=== PATIENT | female | born 2000 | race American Indian/Alaskan Native ===

== ENCOUNTER 2019-04-27 06:00 | Emergency (ER) | payer MEDICAID, OTHER ==
--- NOTE | 2019-04-27 07:43 | Emergency Department Report ---
Head Injury w/o Laceration - HPI Chief Complaint: Headache Stated Complaint: HEADACHE POST FALL Time Seen by Provider: 04/27/19 07:25 Occurred When: Before Yesterday (2 days ago) Mechanism: Fall Location: Frontal Severity: moderate (05/30) Head Inj w/o Lac: Yes Headache (05/30), No Loss of Consciousness, No Nausea, No Blurred Vision, No Altered Mental Status, No Focal Deficit, No Swelling, No Bruising, No Break in Skin, No Bleeding Other History: Patient reports that she fell down a couple stairs 2 days ago and she is without headache. Denies any other symptoms. ED General PMH - Past Medical History General Medical History: no medical history Surgical History: no surgical history, other LMP (females 10-50): last week (01/12/2019) - Family History Significant Family History: hypertension - Social History Smoking Status: Former Smoker Alcohol Use: none Drug Use: N ED Neuro ROS - Review of Systems Constitutional: no symptoms reported Eyes (ROS): other (headache 2 days after falling and) Ears, Nose, Mouth, Throat: denies: ear discharge, nose pain, nose discharge, epistaxis, mouth pain, mouth swelling, loose teeth, throat pain, throat swelling Respiratory: denies: cough, short of breath, stridor, wheezing Cardiology: denies: chest pain, syncope Gastrointestinal/Abdominal: denies: nausea, vomiting Musculoskeletal: denies: back pain, joint pain, joint swelling, muscle pain, muscle stiffness Skin: denies: dryness, lesions, rash Neurological: headache. denies: anxiety, depressed, numbness, tingling, tonic- clonic seizures Head Injury W/O Lac Exam - Exam General: Vital signs noted. No distress. Alert and acting appropriately. This is a 18-year-old female here report that she fell 2 days ago and hit the front of her head and she is having headache. Patient is well-nourished well- developed u distress Adult Head Front + Back: 1 - Is located to the front of her head and both sides Head: Yes Pupils are PERRL, No Hemotympanum, No Hematoma/Ecchymosis, No Epistaxis, No Stepoff/Deformity, No Laceration, No Abrasion Chest, Abd, & Ext: Yes Clear Lung Sounds, Yes Regular Heart Rhythm, No Neck Pain, No Chest Injury/Pain, No Heart Murmur, No Abdominal Tenderness, No Back Tenderness, No Extremity Injury Neuroligical (Head Inj W/O Lac: Yes Normal Speech, Yes Normal Gait, No Lethargy, No Disorientation, No Focal Numbness, No Focal Weakness Exam: GCS 15 ED Disposition Clinical Impression: Accidental fall Qualifiers: Encounter type: initial encounter Qualified Code(s): W19.XXXA - Unspecified fall, initial encounter Acute head injury without loss of consciousness Qualifiers: Encounter type: initial encounter Qualified Code(s): S09.90XA - Unspecified injury of head, initial encounter Disposition: - TO HOME OR SELFCARE Is pt being admited?: No Does the pt Need Aspirin: No Condition: Stable Instructions: Minor Head Injury (ED), Acute Headache (ED) Additional Instructions: Please read his discharge instruction on head injury. Follow-up primary care in 2-3 days I Condition worsens, return to the emergency room Can take Tylenol 3 for pain but please do not drive or operate heavy machinery while taking this medicine as it causes drowsiness Referrals: PRIMARY CARE,MD [Primary Care Provider] - 2-3 Days Forms: Work/School Release Form(ED) ED Course Vital Signs 04/27/19 06:04 Temperature 99.1 F Pulse Rate 95 H Respiratory 18 Rate Blood Pressure 143/72 O2 Sat by Pulse 98 Oximetry - Reevaluation(s) Reevaluation #1: 04/27/19 08:33 Uneventful ED Medical Decision Making - Radiology Data Radiology results: report reviewed Findings [facility] [address] [place] [address] Cat Scan Report Signed Patient: MARNIE ZEPEDA MR#: [id number] : 2000 Acct:[id number] Age/Sex: 18 / F ADM Date: 04/27/19 Loc: ED Attending Dr: CT scan of the head without contrast which is obtained by radiologist and report reviewed by myself. See results without Ordering Physician: NANCY OLSEN Date of Service: 04/27/19 Procedure(s): CT head/brain wo con Accession Number(s): [id number] cc: NANCY OLSEN CT head/brain wo con INDICATION: fallwith anguiano. TECHNIQUE: All CT scans at this location are performed using CT dose reduction for ALARA by means of automated exposure control. COMPARISON: None available. FINDINGS: Slight mucosal thickening in the ethmoid sinuses. Visualized paranasal and ethmoid sinuses are otherwise clear. Ventricles are symmetrical and normal in size. No mass, hemorrhage or other significant abnormality. IMPRESSION: 1. Negative study. Signer Name: Fer Lowry MD Signed: 04/27/2019 8:22 AM Workstation Name: [id number] Transcribed By: TM Dictated By: Fer Lowry MD Electronically Authenticated By: Fer Lowry MD Signed Date/Time: 04/27/19821 DD/ 8 TD/TT: - Medical Decision Making This is a 18-year-old female here presenting complaint headache after falling 2 days. Denies any nausea vomiting or syncopal episode and reportedly was an accidental fall. Patient is neurologically intact with no present his skin nelly face, no visual difficulties. Patient says she took Tylenol 650 mg this morning and it did not work and she did not want Tylenol [address] scan of the head and brain without contrast shows no abnormalities per radiologist's dictation. I discussed the patient diagnosis, treatment plan and the need to follow-up with primary care in 2-3 days. Also discussed with her admission is to return to emergency room - Differential Diagnosis ICH versus ECH, sinusitis, rhinitis
[2019-04-27] MEDS ORDERED: TYLENOL PO ONE (07:44)
--- NOTE | 2019-04-27 08:26 | Cat Scan Report ---
CT head/brain wo con INDICATION: fallwith anguiano. TECHNIQUE: All CT scans at this location are performed using CT dose reduction for ALARA by means of automated e xposure control. COMPARISON: None available. FINDINGS: Slight mucosal thickening in the ethmoid sinuses. Visualized paranasal and ethmoid sinuses are otherw ise clear. Ventricles are symmetrical and normal in size. No mass, hemorrhage or other significant abnormality. IMPRESSION: 1. Negative study. Signer Name: Fer Lowry MD Signed: 04/27/2019 8:22 AM Workstation Name: [id number]
[2019-04-27] MEDS ORDERED: TYLENOL #3 PO ONE (08:39)
[2019-04-27 09:28] VITALS: BP 132/88
== END 2019-04-27 09:27 | disposition home or self-care (01) ==
LOC: ED 06:00
DX: S09.90XA Unspecified injury of head, initial encounter (principal); Z87.891 Personal history of nicotine dependence; W18.30XA Fall on same level, unspecified, initial encounter; Y93.89 Activity, other specified; Y92.89 Other specified places as the place of occurrence of the external cause; Y99.8 Other external cause status
CPT/HCPCS: 70450; 99283

== ENCOUNTER 2019-04-27 17:23 | Emergency (ER) | payer OTHER ==
[2019-04-27] MEDS ORDERED: TORADOL IV ONE (19:51)
[2019-04-27] MEDS ORDERED: FIORICET PO ONE (19:51)
[2019-04-27] MEDS ORDERED: NACL 0.9% 1000 ML 1,000 ML IV ONE (19:52)
[2019-04-27] MEDS ORDERED: ZOFRAN IV ONE (19:52)
[2019-04-27] MEDS ORDERED: KEFLEX PO ONE (22:15)
--- NOTE | 2019-04-27 23:54 | Emergency Department Report ---
ED Headache HPI - General Chief Complaint: Headache Stated Complaint: HEADACHE Source: patient, EMS Exam Limitations: no limitations - History of Present Illness Initial Comments: Patient is a 18-year-old female with no past medical history presents to the ED, no acute onset dizziness and severe frontal headache with nausea and lightheadedness for the last 2 days, and worse in the last 12 hours. Patient states that she tripped and fell down the stairs when playing with one of her friends and hit her head on the stairs 2 days ago. Patient states that initially the pain was mild but subsequently she started having headache which has worsened in the last 12 hours. Patient was initially evaluated extensively and treated for the same in the ED for the same, and was discharged home on pain medications. During the earlier ED visit, patient had a head CT scan without contrast showed no acute intracranial abnormalities or hemorrhage, but which also showed significant sinus infection in ethmoid, maxillary and frontal sinuses. Patient returned tonight complaining of worsening headache but denies nausea, vomiting, neck pain, dizziness, chest pain, shortness of breath, loss of consciousness, syncope, change in vision or loss of consciousness. Patient states that she has not been able to purchase the pain medications that were prescribed during that ED visit. Timing/Duration: constant, waxing and waning, other (2 days) Quality: severe, constant, sharp, throbbing Head Injury Location: frontal Recent Head Trauma: head trauma > 24 hrs ago Modifying Factors: improves with: medication Associated Symptoms: denies symptoms. denies: confusion, fatigue, facial pain, fever/chills, flushing, loss of consciousness, nausea/vomiting, nasal congestion, nasal drainage, numbness in legs/feet, seizures, sinus infection, stiff neck, vision changes, weakness Allergies/Adverse Reactions: Allergies No Known Allergies Allergy (Unverified 04/27/19 07:49) Home Medications: Ambulatory Orders Acetaminophen/Codeine [Tylenol /Codeine # 3 tab] 1 tab PO Q6H PRN #14 tab 04/27/19 Amoxicillin [Trimox CAP] 500 mg PO Q8H #30 capsule 04/28/19 Ketorolac [Toradol] 10 mg PO Q6H PRN #20 tablet 04/28/19 Promethazine [Phenergan] 25 mg PO Q6HR PRN #24 tab 04/28/19 ED Review of Systems ROS: Stated complaint: HEADACHE Other details as noted in HPI Constitutional: denies: chills, fever Eyes: denies: eye pain, eye discharge, vision change ENT: congestion, other (severely tender frontal sinus). denies: ear pain, throat pain Respiratory: denies: cough, shortness of breath, wheezing Cardiovascular: denies: chest pain, palpitations, dyspnea on exertion, orthopnea, edema, syncope Endocrine: no symptoms reported Gastrointestinal: nausea. denies: abdominal pain, vomiting, diarrhea, con stipation, hematemesis, melena, hematochezia Genitourinary: denies: urgency, dysuria, discharge Musculoskeletal: denies: back pain, joint swelling, arthralgia Skin: denies: rash, lesions Neurological: headache. denies: weakness, numbness, paresthesias, confusion, abnormal gait, vertigo Psychiatric: denies: anxiety, depression Hematological/Lymphatic: denies: easy bleeding, easy bruising ED Past Medical Hx - Past Medical History Hx Asthma: Yes - Social History Smoking Status: Former Smoker - Medications Home Medications: Home Medications Medication Instructions Recorded Confirmed Last Taken Type Acetaminophen/Codeine [Tylenol 1 tab PO Q6H PRN #14 tab 04/27/19 Unknown Rx /Codeine # 3 tab] Amoxicillin [Trimox CAP] 500 mg PO Q8H #30 capsule 04/28/19 Unknown Rx Ketorolac [Toradol] 10 mg PO Q6H PRN #20 tablet 04/28/19 Unknown Rx Promethazine [Phenergan] 25 mg PO Q6HR PRN #24 tab 04/28/19 Unknown Rx ED Physical Exam - General Limitations: No Limitations General appearance: alert, in no apparent distress - Head Head exam: Present: atraumatic, normocephalic, normal inspection, other (palpable severe tenderness on frontal sinus) - Eye Eye exam: Present: normal appearance, PERRL, EOMI. Absent: scleral icterus, conjunctival injection, nystagmus, periorbital swelling, periorbital tenderness, other Pupils: Present: normal accommodation - ENT ENT exam: Present: normal exam, normal orophraynx, mucous membranes moist, TM's normal bilaterally, normal external ear exam, other (Palpable severe frontal sinus tenderness) - Neck Neck exam: Present: normal inspection, full ROM. Absent: tenderness, meningismus, lymphadenopathy, thyromegaly - Respiratory Respiratory exam: Present: normal lung sounds bilaterally. Absent: respiratory distress, wheezes, rales, rhonchi, chest wall tenderness, accessory muscle use, decreased breath sounds - Cardiovascular Cardiovascular Exam: Present: regular rate, normal rhythm, normal heart sounds. Absent: systolic murmur, diastolic murmur, rubs, gallop - GI/Abdominal GI/Abdominal exam: Present: soft, normal bowel sounds. Absent: distended, tenderness, guarding, rebound, hyperactive bowel sounds, hypoactive bowel sounds, organomegaly, mass - Rectal Rectal exam: Present: deferred - Extremities Exam Extremities exam: Present: normal inspection, full ROM, normal capillary refill - Back Exam Back exam: Present: normal inspection, full ROM. Absent: tenderness, CVA tenderness (L), muscle spasm, paraspinal tenderness - Neurological Exam Neurological exam: Present: alert, oriented X3, CN II-XII intact, normal gait, reflexes normal - Psychiatric Psychiatric exam: Present: normal affect, normal mood - Skin Skin exam: Present: warm, dry, intact, normal color. Absent: rash ED Course Vital Signs 04/27/19 04/27/19 04/27/19 17:30 20:33 21:03 Temperature 98.4 F Pulse Rate 85 Respiratory 18 18 16 Rate Blood Pressure 131/74 O2 Sat by Pulse 100 Oximetry 04/27/19 21:33 Temperature Pulse Rate Respiratory 16 Rate Blood Pressure O2 Sat by Pulse Oximetry - Reevaluation(s) Reevaluation #1: 04/27/19 23:56 Patient initially presented to the ED with severe headache after a fall 2 days ago and was initially evaluated in the ED during that visit. Patient had a negative head CT scan without contrast in the earlier visit to the ED. Of note is that the also findings of chronic sinus disease. Patient had been discharged home on pain medications at the time 4 hours after being discharged stating that her headache is present even though he did not feel that was given. During this visit, patient is alert and oriented 3 and is not in distress but appears to be in pain. Physical exam reveals no neurological signs. Patient was treated for pain in the ED and patient fell asleep comfortably in the room. On reevaluation, the patient's headache resolved and patient was also given initial oral antibiotic dose to treat chronic sinus disease. Patient was discharged home on oral antibiotics and advised to follow-up with [facility] for further re-evaluation or return to the ED immediately if symptoms get worse. ED Medical Decision Making - Medical Decision Making Patient initially presented to the ED with severe headache after a fall 2 days ago and was initially evaluated in the ED during that visit. Patient had a negative head CT scan without contrast in the earlier visit to the ED. Of note is that the also findings of chronic sinus disease. Patient had been discharged home on pain medications at the time 4 hours after being discharged stating that her headache is present even though he did not feel that was given. During this visit, patient is alert and oriented 3 and is not in distress but appears to be in pain. Physical exam reveals no neurological signs. Patient was treated for pain in the ED and patient fell asleep comfortably in the room. On reevaluation, the patient's headache resolved and patient was also given initial oral antibiotic dose to treat chronic sinus disease. On further questioning of the patient prior to being discharged, patient admits that she is homeless at this time but stays at a hotel, and that she has no money to pay for medications. Patient was therefore given a prescription for free antibiotics chronic sinus disease. Patient was discharged home on oral antibiotics and advised to follow-up with [facility] for further re-evaluation or return to the ED immediately if symptoms get worse. - Differential Diagnosis acute post-traumatic headache; sinus headache; chronic sinusitis Critical care attestation.: If time is entered above; I have spent that time in minutes in the direct care of this critically ill patient, excluding procedure time. ED Disposition Clinical Impression: Acute post-traumatic headache, not intractable Chronic sinusitis, unspecified Qualifiers: Sinusitis location: unspecified location Qualified Code(s): J32.9 - Chronic sinusitis, unspecified Acute head injury without loss of consciousness Qualifiers: Encounter type: subsequent encounter Qualified Code(s): S09.90XD - Unspecified injury of head, subsequent encounter Disposition: TO HOME OR SELFCARE Is pt being admited?: No Does the pt Need Aspirin: No Condition: Stable Instructions: Minor Head Injury (ED), Sinusitis (ED), Scalp Contusion in Adults (ED) Additional Instructions: Take medications with food, drink plenty of fluids and follow-up with your primary care physician at [facility] for further reevaluation. Return to the ED immediately if symptoms get worse. Prescriptions: Promethazine [Phenergan] 25 mg PO Q6HR PRN #24 tab PRN Reason: Nausea Ketorolac [Toradol] 10 mg PO Q6H PRN #20 tablet PRN Reason: Pain Amoxicillin [Trimox CAP] 500 mg PO Q8H #30 capsule Referrals: PRIMARY CARE,MD [Primary Care Provider] - 3-5 Days [facility] [Outside] - 3-5 Days Time of Disposition: 00:03 Print Language: GEORGIAN
[2019-04-28 00:49] VITALS: BP 110/62
== END 2019-04-28 00:50 | disposition home or self-care (01) ==
LOC: ED 17:23
DX: S09.90XD Unspecified injury of head, subsequent encounter (principal); J32.9 Chronic sinusitis, unspecified; G44.311 Acute post-traumatic headache, intractable
CPT/HCPCS: 96361; 96374; 96375; 99283; J1885; J2405; J7030

== ENCOUNTER 2019-04-28 08:25 | Emergency (ER) | payer OTHER ==
[2019-04-28 08:44] VITALS: BP 137/88
[2019-04-28] MEDS ORDERED: TORADOL IM ONE (09:01)
[2019-04-28] MEDS ORDERED: REGLAN PO ONE (09:01)
[2019-04-28] MEDS ORDERED: BENADRYL PO ONE (09:01)
--- NOTE | 2019-04-28 09:06 | Emergency Department Report ---
ED Headache HPI - General Chief Complaint: Headache Stated Complaint: EXTREME HEADACHE Time Seen by Provider: 04/28/19 08:38 - History of Present Illness Initial Comments: Patient is a 18-year-old female who presents to the emergency room with complaints of a diffuse headache that began on 04/27. Patient states she was at work and she fell down the steps and hit the right side of her head. Patient was evaluated in the ED on 04/27 and had a normal CT scan of the head at that time. She states she has continued to have a headache since then. Patient states she has associated photophobia, nausea, vomiting, difficulty sleeping. She denies any numbness, weakness, bowel or bladder incontinence, neck pain, vision changes, speech disturbance, gait disturbance. Allergies/Adverse Reactions: Allergies No Known Allergies Allergy (Unverified 04/27/19 07:49) Home Medications: Ambulatory Orders Acetaminophen/Codeine [Tylenol /Codeine # 3 tab] 1 tab PO Q6H PRN #14 tab 04/27 Amoxicillin [Trimox CAP] 500 mg PO Q8H #30 capsule 04/28/19 Butalb/Acetaminophen/Caffeine [Fioricet 50-300-40 mg CAP] 1 cap PO Q6HR PRN #10 cap 04/28/19 Ketorolac [Toradol] 10 mg PO Q6H PRN #20 tablet 04/28/19 Ondansetron [Zofran Odt] 4 mg PO Q8HR PRN #14 tab.rapdis 04/28/19 Promethazine [Phenergan] 25 mg PO Q6HR PRN #24 tab 04/28/19 ED Review of Systems ROS: Stated complaint: EXTREME HEADACHE Other details as noted in HPI Comment: All other systems reviewed and negative ED Past Medical Hx - Past Medical History Previous Medical History?: Yes Hx Asthma: Yes - Surgical History Past Surgical History?: No - Social History Smoking Status: Never Smoker Substance Use Type: None - Medications Home Medications: Home Medications Medication Instructions Recorded Confirmed Last Taken Type Acetaminophen/Codeine [Tylenol 1 tab PO Q6H PRN #14 tab 04/27/19 Unknown Rx /Codeine # 3 tab] Amoxicillin [Trimox CAP] 500 mg PO Q8H #30 capsule 04/28/19 Unknown Rx Butalb/Acetaminophen/Caffeine 1 cap PO Q6HR PRN #10 cap 04/28/19 Unknown Rx [Fioricet 50-300-40 mg CAP] Ketorolac [Toradol] 10 mg PO Q6H PRN #20 tablet 04/28/19 Unknown Rx Ondansetron [Zofran Odt] 4 mg PO Q8HR PRN #14 tab.rapdis 04/28/19 Unknown Rx Promethazine [Phenergan] 25 mg PO Q6HR PRN #24 tab 04/28/19 Unknown Rx ED Physical Exam - General Limitations: No Limitations General appearance: alert, in no apparent distress - Head Head exam: Present: atraumatic, normocephalic, other (no edema, no abrasion, no ecchymosis, no laceration to the right side of the head) - Eye Eye exam: Present: normal appearance, PERRL, EOMI. Absent: scleral icterus, conjunctival injection, nystagmus - ENT ENT exam: Present: mucous membranes moist - Respiratory Respiratory exam: Present: normal lung sounds bilaterally. Absent: respiratory distress, wheezes, rales, rhonchi, stridor, chest wall tenderness, accessory muscle use, decreased breath sounds, prolonged expiratory - Cardiovascular Cardiovascular Exam: Present: regular rate, normal rhythm, normal heart sounds. Absent: systolic murmur, diastolic murmur, rubs, gallop - Neurological Exam Neurological exam: Present: alert, oriented X3, CN II-XII intact, normal gait, other (5/5 strength in the BUE/BLE, equal timber rider strength, sensation intact throughout, no focal neuro deficit). Absent: motor sensory deficit - Psychiatric Psychiatric exam: Present: normal affect, normal mood - Skin Skin exam: Present: warm, dry, intact ED Course Vital Signs 04/28/19 04/28/19 08:28 09:16 Temperature 98.0 F Pulse Rate 74 Respiratory 16 16 Rate Blood Pressure 137/88 O2 Sat by Pulse 99 Oximetry ED Medical Decision Making - Medical Decision Making Patient is a 18-year-old female who presents to the emergency room with complain ts of a diffuse headache that began on 04/27. Patient states she was at work and she fell down the steps and hit the right side of her head. Patient was evaluated in the ED on 04/27 and had a normal CT scan of the head at that time. She states she has continued to have a headache since then. Patient states she has associated photophobia, nausea, vomiting, difficulty sleeping. She denies any numbness, weakness, bowel or bladder incontinence, neck pain, vision changes, speech disturbance, gait disturbance. VSS. no focal neuro deficits on exam. Patient's headache treated in the emergency department and headache improved. will be treated for post concussion syndrome. Given prescription for Fioricet and Zofran. Advised patient to take medication as prescribed. follow up with a neurologist in the next 2-3 days. given two neurology groups in the area. return to the emergency room for any new or worsening symptoms. - Differential Diagnosis migraine, tension GONZALEZ, cluster GONZALEZ, post concussion syndrome Critical care attestation.: If time is entered above; I have spent that time in minutes in the direct care of this critically ill patient, excluding procedure time. ED Disposition Clinical Impression: Post concussion syndrome Disposition: DC- TO HOME OR SELFCARE Is pt being admited?: No Does the pt Need Aspirin: No Condition: Stable Instructions: Post Concussion Syndrome (ED) Additional Instructions: please take medication as prescribed as needed. follow up with a neurologist in the next 2-3 days. given two neurology groups in the area. return to the emergency room for any new or worsening symptoms. Prescriptions: Butalb/Acetaminophen/Caffeine [Fioricet 50-300-40 mg CAP] 1 cap PO Q6HR PRN #10 cap PRN Reason: Headache Ondansetron [Zofran Odt] 4 mg PO Q8HR PRN #14 tab.rapdis PRN Reason: Nausea And Vomiting Referrals: XAVIER KUMAR MD [Staff Physician] - 2-3 Days FREDIS BRUSH MD [Referring] - 2-3 Days Time of Disposition: 09:29 Print Language: ICELANDIC
== END 2019-04-28 09:59 | disposition home or self-care (01) ==
LOC: ED 08:25
DX: F07.81 Postconcussional syndrome (principal); J45.909 Unspecified asthma, uncomplicated
CPT/HCPCS: 96372; 99283; J1885